=== PATIENT | male | born 1960 | race American Indian/Alaskan Native ===

== ENCOUNTER 2017-08-06 16:11 | Emergency (ER) | payer OTHER ==
[2017-08-06] MEDS ORDERED: TORADOL IM ONE (16:35)
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
[2017-08-06 17:33] VITALS: BP 121/75
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
== END 2017-08-06 20:04 | disposition home or self-care (01) ==
LOC: ED 16:11
DX: M25.551 Pain in right hip (principal); Z88.0 Allergy status to penicillin; V89.2XXA Person injured in unspecified motor-vehicle accident, traffic, initial encounter; Y93.89 Activity, other specified; Y92.89 Other specified places as the place of occurrence of the external cause; Y99.8 Other external cause status
CPT/HCPCS: 73502; 96372; 99283; J1885